=== PATIENT | female | born 1955 | race Hispanic/Latino ===

== ENCOUNTER 2022-05-17 09:00 | Inpatient (IN) | payer MEDICARE, BC ==
[2022-05-17 10:05] LABS: #Eosinphils 0.2 10x3/uL (0.0-0.5); #Monocytes 0.4 10x3/uL (0.0-1.1); #Neutrophils 3.9 10x3/uL (1.5-8.4); %Basophils 0.7 % (0.0-2.0); %Eosinophils 2.5 % (0.0-6.0); %Lymphocytes 25.2 % (18.0-47.0); %Monocytes 6.1 % (0.0-10.0); %Neutrophils 65.2 % (40.0-75.0); Hemoglobin 12.6 g/dL (12.0-15.5); Mean Corpuscular HGB CONC 33.1 g/dL (32.0-36.0); Mean Corpuscular Hemoglobin 30.1 pg (27.0-33.0); Mean Corpuscular Volume 90.9 fl (81.6-98.3); Mean Platelet Volume 9.6 fl (7.4-10.4); Platelet Count 266 10x3/uL (150-450); RBC Distribution Width 13.2 % (11.5-14.5); Red Blood Cell (RBC) Count 4.19 10x6/uL (3.90-5.03)
[2022-05-17 10:29] LABS: Prothrombin Time 10.6 sec (9.5-12.1)
[2022-05-17 10:34] LABS: Bilirubin Neg (Negative); Blood, Urine 50 (Negative); Clarity Clear (Clear); Glucose, Urine (Dipstick) Normal (Negative); Ketone, Urine Negative (Negative); Leukocyte 100 (Negative); Nitrite Negative (Negative); Protein, Urine (Dipstick) 15 mg/dl (Neg-Trace); Specific Gravity, Urine 1.015 (1.002-1.036); Urobilinogen Normal mg/dL (Less than 2)
[2022-05-17 10:35] LABS: Anion Gap 13 mmol/L (10-20); BUN (Urea Nitrogen) 20 mg/dL (9.8-20.1); Calc. Creatinine Clearance 0 mL/min (70-130); Calcium 10.1 mg/dL (7.8-10.44); Carbon Dioxide 28 mmol/L (23-31); Chloride 104 mmol/L (98-107); Estimated GFR 87; Glucose 89 mg/dL (80-115); Potassium 4.1 mmol/L (3.5-5.1); Sodium 141 mmol/L (136-145)
[2022-05-18 14:46] VITALS: BMI 37.7
[2022-05-22] MEDS ORDERED: Tranexamic Acid 1,000 MG/10 ML VIAL ONE (06:03)
[2022-05-22] MEDS ORDERED: Vancomycin (BATCH) 1.5 GRAM/300 ML BAG ONE (06:03)
[2022-05-22] MEDS ORDERED: Sodium Chloride 0.9% 100 ML ONE ×2 (06:03→07:12)
[2022-05-22] MEDS ORDERED: Bupivacaine PF 0.5% 30 ML VIAL ONE (06:23)
[2022-05-22] MEDS ORDERED: Fentanyl 100 MCG/2 ML VIAL ONE (06:23)
[2022-05-22] MEDS ORDERED: Midazolam HCl 2 mg/2 ml Vial ONE (06:23)
[2022-05-22] MEDS ORDERED: CEFAZOLIN 2 GM VIAL ONE (07:12)
[2022-05-22] MEDS ORDERED: Bupivacaine HCl 0.5%/Epinephrine 1:200,000/PF 30 ml Vial ONE (07:22)
[2022-05-22] MEDS ORDERED: Dexamethasone 20 MG/5 ML VIAL ONE (07:22)
[2022-05-22] MEDS ORDERED: Ondansetron PF 4 MG/2 ML Vial ONE (07:22)
[2022-05-22] MEDS ORDERED: PROPOFOL 200 MG/20 ML VIAL ONE (07:22)
[2022-05-22] MEDS ORDERED: Phenylephrine 10 MG/ML VIAL ONE (07:22)
[2022-05-22] MEDS ORDERED: Promethazine HCl 25 MG/ML VIAL IM PRN ×3 (07:28→09:19)
[2022-05-22] MEDS ORDERED: Zolpidem Tartrate 5 MG TAB PO PRN ×2 (07:28→08:00)
[2022-05-22] MEDS ORDERED: Fentanyl 100 MCG/2 ML VIAL SLOW IVP PRN (07:28)
[2022-05-22] MEDS ORDERED: HYDROcodone/Acetaminophen 10/325 mg Tablet PO PRN ×3 (07:28→08:00)
[2022-05-22] MEDS ORDERED: diphenhydrAMINE 25 MG CAP PO PRN (07:28)
[2022-05-22] MEDS ORDERED: traMADol HCl 50 MG TAB PO PRN ×3 (07:28→08:00)
[2022-05-22] MEDS ORDERED: Acetaminophen 325 MG TAB PO PRN (07:28)
[2022-05-22] MEDS ORDERED: Ondansetron PF 4 MG/2 ML Vial IVP PRN (07:28)
[2022-05-22] MEDS ORDERED: Tranexamic Acid 1,000 MG in Sodium Chloride 0.9% 100 ML IVPB SCH (07:30)
[2022-05-22] MEDS ORDERED: fentaNYL Citrate/PF 100 MCG/2 ML SYRINGE ONE (07:43)
[2022-05-22] MEDS ORDERED: Morphine 10 MG/ML VIAL ONE (07:43)
[2022-05-22] MEDS ORDERED: Fentanyl 100 MCG/2 ML VIAL IV PRN (07:55)
[2022-05-22] MEDS ORDERED: Ropivacaine 0.2% 550 ML 550 ML NERVE BLCK SCH (08:00)
[2022-05-22] MEDS ORDERED: PHENYLEPHRINE-NS 100 MCG/ML 10 ML SYRINGE ONE (08:29)
[2022-05-22] MEDS ORDERED: Non-Formulary Item 1 EACH (Levothyroxine Sodium [Levothyroxine] 25 MCG Capsule) PO SCH (09:00)
[2022-05-22] MEDS ORDERED: Ondansetron HCl/PF 4 MG/2 ML Vial IVP PRN (09:19)
[2022-05-22] MEDS ORDERED: Promethazine HCl 25 MG/ML VIAL IVPB PRN (09:19)
[2022-05-22] MEDS ORDERED: Meperidine HCl/PF 25 MG/ML VIAL ONE (09:37)
[2022-05-22] MEDS: Aspirin 81 mg Enteric Coated Tablet PO SCH ×2 (10:22→21:36)
[2022-05-22] MEDS: Ferrous Gluconate 324 MG TAB PO SCH ×2 (10:22→21:37)
[2022-05-22] MEDS: Trospium 20 MG TAB PO SCH ×2 (10:23→21:37)
[2022-05-22] MEDS: Multivitamin W/ Minerals 1 TAB PO SCH (10:23)
[2022-05-22] MEDS: Senokot S 8.6-50 MG TAB PO SCH ×2 (10:23→21:37)
[2022-05-22] MEDS: Amlodipine 5 MG TAB PO SCH (10:24)
[2022-05-22] MEDS: Sodium Chloride 0.9% 1,000 ML IV SCH ×2 (11:57→18:02)
[2022-05-22] MEDS: Triamterene/Hydrochlorothiazide 37.5 mg/25 mg Tablet PO SCH (11:57)
[2022-05-22] MEDS: Ketorolac Tromethamine 30 MG/ML VIAL IVP SCH ×3 (11:58→23:25)
[2022-05-22] MEDS ORDERED: Ketorolac Tromethamine 30 MG/ML VIAL IVP SCH (14:00)
[2022-05-22] MEDS: CEFAZOLIN 2 GM in Sodium Chloride 0.9% 100 ML IVPB SCH ×2 (15:15→23:24)
[2022-05-22] MEDS: Ondansetron PF 4 MG/2 ML Vial IVP PRN ×2 (15:15→21:38)
[2022-05-22] MEDS: HYDROcodone/Acetaminophen 10/325 mg Tablet PO PRN ×2 (15:16→21:38)
[2022-05-22] MEDS ORDERED: Vancomycin HCl 1.5 GM in Sodium Chloride 0.9% 250 ML 300 ML IVPB SCH (18:00)
[2022-05-22] MEDS ORDERED: Atorvastatin Calcium 20 MG TAB PO SCH (21:00)
[2022-05-23] MEDS: Sodium Chloride 0.9% 1,000 ML IV SCH (04:31)
[2022-05-23] MEDS: Ketorolac Tromethamine 30 MG/ML VIAL IVP SCH ×2 (05:23→11:30)
[2022-05-23] MEDS: HYDROcodone/Acetaminophen 10/325 mg Tablet PO PRN ×3 (05:24→12:48)
[2022-05-23] MEDS ORDERED: Levothyroxine Sodium 25 MCG TAB PO SCH (06:00)
[2022-05-23 08:00] VITALS: TEMP 98.2
[2022-05-23] MEDS: Aspirin 81 mg Enteric Coated Tablet PO SCH (09:04)
[2022-05-23] MEDS: Amlodipine 5 MG TAB PO SCH (09:04)
[2022-05-23] MEDS: Triamterene/Hydrochlorothiazide 37.5 mg/25 mg Tablet PO SCH (09:04)
[2022-05-23] MEDS: Ferrous Gluconate 324 MG TAB PO SCH (09:04)
[2022-05-23] MEDS: Senokot S 8.6-50 MG TAB PO SCH (09:05)
[2022-05-23] MEDS: Trospium 20 MG TAB PO SCH (09:05)
[2022-05-23] MEDS: Multivitamin W/ Minerals 1 TAB PO SCH (09:05)
[2022-05-23 10:18] LABS: Hemoglobin 10.9 g/dL (12.0-16.0); Mean Corpuscular HGB CONC 33.5 g/dL (32.0-36.0); Mean Corpuscular Hemoglobin 31.9 pg (27.0-31.0); Mean Corpuscular Volume 95.1 fL (78.0-98.0); Mean Platelet Volume 6.9 fL (7.4-10.4); Platelet Count 241 thou/uL (130-400); RBC Distribution Width 12.2 % (11.5-14.5); Red Blood Cell (RBC) Count 3.41 mill/uL (4.20-5.40); White Blood Cell (WBC) Count 9.8 thou/uL (4.8-10.8)
[2022-05-23 12:10] VITALS: BP 106/61
== END 2022-05-23 12:55 | disposition home or self-care (01) | DRG 470 ==
LOC: SURG A 05-22 05:36 → SJJU 05-22 10:16
PROVIDERS: ADMIT Orthopaedic Surgery; ATTEND Orthopaedic Surgery
PROC: 0SRC0J9 Replacement of Right Knee Joint with Synthetic Substitute, Cemented, Open Approach (ICD-10-PCS; principal; 2022-05-22)
PROC: 3E0T3BZ Introduction of Anesthetic Agent into Peripheral Nerves and Plexi, Percutaneous Approach (ICD-10-PCS; 2022-05-22)
DX: M17.11 Unilateral primary osteoarthritis, right knee (principal); Z20.822 Contact with and (suspected) exposure to COVID-19; E03.9 Hypothyroidism, unspecified; Z79.899 Other long term (current) drug therapy; Z79.890 Hormone replacement therapy
CPT/HCPCS: 36415; 80048; 81003; 85025; 85027; 85610; 86850; 86900; 86901; 87081; 87811; A4306; C1713; C1776; J0690; J1100; J1885; J2175; J2250; J2270; J2370; J2405; J2704; J2795; J3010; J3370; J3490; J7050; S0020

== ENCOUNTER 2022-05-17 09:02 | Outpatient (CLI) | payer MEDICARE, BC | END 2022-05-17 09:03 | disposition home or self-care (01) | LOC: LABBT 09:02 | PROVIDERS: ATTEND Orthopaedic Surgery | DX: Z01.818 Encounter for other preprocedural examination (principal); M17.11 Unilateral primary osteoarthritis, right knee; Z20.822 Contact with and (suspected) exposure to COVID-19 | CPT/HCPCS: 71046; 80048; 81003; 85025; 85610; 86850; 86900; 86901; 87081; 87811; 93005; 93010 ==